=== PATIENT | male | born 1975 | race Hispanic/Latino ===

== ENCOUNTER 2019-10-09 13:34 | Inpatient (IN) | payer BC, OTHER ==
[2019-10-09] MEDS ORDERED: IPRATROPIUM BROM 0.5MG/2.5ML ONE (14:26)
[2019-10-09] MEDS ORDERED: NA CHLORIDE 0.9% 2,000 ML ONE (14:26)
[2019-10-09] MEDS ORDERED: LEVALBUTEROL 1.25 MG/3 ML NEB ONE (14:26)
[2019-10-09] MEDS ORDERED: Levofloxacin 750mg IV 750 MG/150 ML BAG IV ONE (14:26)
[2019-10-09] MEDS ORDERED: ONDANSETRON 4 MG/2 ML VIAL ONE ×2 (14:34→14:59)
[2019-10-09 14:49] LABS: Absolute Lymphocytes (CBC) 0.3 K/uL (0.7-4.9); Basophils % 0.4 % (0-1.3); Hematocrit 46.7 % (39.6-49.0); Lymphocytes % 2.8 % (15.3-44.8); MPV 9.2 fL (7.6-11.3); Protime INR 1.19; RBC Red Blood Cell Count 5.18 M/uL (4.33-5.43)
[2019-10-09] MEDS ORDERED: ACETAMINOPHEN 500 MG TAB ONE (14:59)
[2019-10-09] MEDS ORDERED: OSELTAMIVIR 75 MG CAP ONE (14:59)
[2019-10-09 15:10] LABS: Albumin 2.6 g/dL (3.4-5.0); Bilirubin Direct 0.2 mg/dL (0-0.2); Bilirubin Total 0.6 mg/dL (0.2-1.0); Magnesium 1.7 mg/dL (1.8-2.4); Potassium 3.6 mmol/L (3.5-5.1); Protein, Total 6.9 g/dL (6.4-8.2); Troponin (Emerg Dept Use Only) 0.02 ng/mL (0.0-0.045)
--- NOTE | 2019-10-09 15:10 | RAD REPORT ---
EXAM DESCRIPTION: RAD - Chest Pa And Lat (2 Views) - 10/09/2019 2:40 pm CLINICAL HISTORY: PAIN, cough, fever COMPARISON: Chest Pa And Lat (2 Views) dated 10/23/2017; Chest Pa And Lat (2 Views) dated 10/21/2017 TECHNIQUE: Frontal and lateral views of the chest were obtained. FINDINGS: The lungs are normal volume. Lateral view is limited due to film technique and large body habitus. Alveolar opacities are present in the mid and lower right lung field not present on the prior examina tion. Overall mild interstitial pattern is similar to comparison. Heart size is normal and central vasculature is within normal limits. No pleural effusion or pneumothorax seen. No acute bony findin g noted. No aortic abnormality. IMPRESSION: Mid and lower right lung field pneumonia.
[2019-10-09 15:26] LABS: Blood Morphology Comment NOT SEEN (NOT SEEN); Platelet Estimate ADEQ; Urine White Blood Cell Casts OK
--- NOTE | 2019-10-09 15:26 | EDPHYS ---
Physician Documentation [facility] Name: Reynaldo Stevenson Age: 44 yrs Sex: Male : 1975 Arrival Date: 10/09/2019 Time: 13:39 Bed 6 Private MD: ED Physician Ciro Leavitt HPI: 10/09 14:19 This 44 yrs old Male presents to ER via Ambulatory with complaints of Flu caitlyn Symptoms. 14:19 The patient has shortness of breath at rest, with light activity. Onset: The caitlyn symptoms/episode began/occurred 2 day(s) ago. The patient's shortness of breath has no apparent modifying factors. Modifying factors: The symptoms are alleviated by nothing. the symptoms are aggravated by nothing. Associated signs and symptoms: The patient has no apparent associated signs or symptoms. Severity of symptoms: At their worst the symptoms were moderate in the emergency department the symptoms are unchanged. Historical: - Allergies: 13:45 No Known Allergies; aj1 - PMHx: 13:45 Hypertension; Diabetes - NIDDM; aj1 - PSHx: 13:45 None; aj1 - Immunization history:: Flu vaccine is not up to date. - Coronavirus screen:: The patient has NOT traveled to [place], [place], or [place] in the past 14 days. - Social history:: Smoking status: Patient reports the use of cigarette tobacco products, 1 pack per week. - Ebola Screening: : Patient denies travel to an Ebola-affected area in the 21 days before illness onset. ROS: 14:20 Eyes: Negative for injury, pain, redness, and discharge, ENT: Negative for injury, caitlyn pain, and discharge, Neck: Negative for injury, pain, and swelling, Cardiovascular: Negative for chest pain, palpitations, and edema, Abdomen/GI: Negative for abdominal pain, nausea, vomiting, diarrhea, and constipation, Back: Negative for injury and pain, : Negative for injury, bleeding, discharge, and swelling, MS/Extremity: Negative for injury and deformity, Skin: Negative for injury, rash, and discoloration, Neuro: Negative for headache, weakness, numbness, tingling, and seizure. 14:20 Cardiovascular: Positive for palpitations. 14:20 Respiratory: Positive for cough, shortness of breath, wheezing, expiratory. Exam: 14:20 Head/Face: Normocephalic, atraumatic. Eyes: Pupils equal round and reactive to light, caitlyn extra-ocular motions intact. Lids and lashes normal. Conjunctiva and sclera are non-icteric and not injected. Cornea within normal limits. Periorbital areas with no swelling, redness, or edema. ENT: Nares patent. No nasal discharge, no septal abnormalities noted. Tympanic membranes are normal and external auditory canals are clear. Oropharynx with no redness, swelling, or masses, exudates, or evidence of obstruction, uvula midline. Mucous membranes moist. Neck: Trachea midline, no thyromegaly or masses palpated, and no cervical lymphadenopathy. Supple, full range of motion without nuchal rigidity, or vertebral point tenderness. No Meningismus. Chest/axilla: Normal chest wall appearance and motion. Nontender with no deformity. No lesions are appreciated. Abdomen/GI: Soft, non-tender, with normal bowel sounds. No distension or tympany. No guarding or rebound. No evidence of tenderness throughout. Back: No spinal tenderness. No costovertebral tenderness. Full range of motion. Male : Normal genitalia with no discharge or lesions. Skin: Warm, dry with normal turgor. Normal color with no rashes, no lesions, and no evidence of cellulitis. 14:20 Constitutional: The patient appears febrile. 14:20 Cardiovascular: Rate: tachycardic, Rhythm: regular, Heart sounds: normal. 14:20 Musculoskeletal/extremity: DVT Exam: No signs of deep vein thrombosis. no pain, no swelling, no tenderness, negative Homans' sign noted on exam, no appreciated bluish discoloration, no erythema, no increased warmth. Vital Signs: 13:45 BP 173 / 93; Pulse 117; Resp 20; Temp 99.6; Pulse Ox 96% on R/A; Weight 133.81 kg (R); aj1 Height 5 ft. 5 in. (165.10 cm) (R); 14:48 BP 134 / 88; Pulse 100; Resp 20; Pulse Ox 96% on R/A; em 16:14 BP 138 / 83; Pulse 101; Resp 20; Temp 99.0(O); Pulse Ox 100% on R/A; em 13:45 Body Mass Index 49.09 (133.81 kg, 165.10 cm) [facility] MDM: 13:54 Patient medically screened. [facility] 14:22 Data reviewed: vital signs, nurses notes, lab test result(s), EKG, radiologic studies, caitlyn plain films. 10/09 14:18 Order name: Basic Metabolic Panel; Complete Time: 15:23 [facility] 10/09 14:18 Order name: CBC with Diff; Complete Time: 18:12 [facility] 10/09 14:18 Order name: LFT's; Complete Time: 15:23 [facility] 10/09 14:18 Order name: Magnesium; Complete Time: 15:23 [facility] 10/09 14:18 Order name: NT PRO-BNP; Complete Time: 15:23 [facility] 10/09 14:18 Order name: PT-INR; Complete Time: 15:23 [facility] 10/09 14:18 Order name: Troponin (emerg Dept Use Only); Complete Time: 15:23 [facility] 10/09 14:18 Order name: Chest Pa And Lat (2 Views) XRAY; Complete Time: 15:23 [facility] 10/09 14:19 Order name: Procalcitonin; Complete Time: 18:12 [facility] 10/09 14:19 Order name: Lactate; Complete Time: 15:23 [facility] 10/09 14:19 Order name: Blood Culture Adult (2) [facility] 10/09 15:03 Order name: CBC Smear Scan; Complete Time: 18:12 [facility] 10/09 14:18 Order name: EKG; Complete Time: 14:19 [facility] 10/09 14:18 Order name: Cardiac monitoring; Complete Time: 15:04 [facility] 10/09 14:18 Order name: EKG - Nurse/Tech; Complete Time: 15:04 [facility] 10/09 14:18 Order name: IV Saline Lock; Complete Time: 15:04 [facility] 10/09 14:18 Order name: Labs collected and sent; Complete Time: 15:04 [facility] 10/09 14:18 Order name: O2 Per Protocol; Complete Time: 15:04 [facility] 10/09 16:13 Order name: Diet Heart Healthy; Complete Time: 16:13 10/09 14:18 Order name: O2 Sat Monitoring; Complete Time: 14:25 [facility] 10/09 18:11 Order name: Urine Dipstick-Ancillary (obtain specimen); Complete Time: 18:11 ss Administered Medications: 14:22 CANCELLED (Duplicate Order): Atropine 0.5 mg IVP once [facility] 14:30 Drug: Zofran 4 mg Route: IVP; Site: right antecubital; em 14:50 Follow up: Response: No adverse reaction; Marked relief of symptoms; Nausea is decreasedem 14:50 Drug: NS 0.9% 1000 ml Route: IV; Rate: 1 bolus; Site: right antecubital; em 14:50 Drug: NS 0.9% 1000 ml Route: IV; Rate: 1 bolus; Site: right antecubital; em 14:50 Drug: levofloxacin 750 mg Volume: 150 ml; Route: IVPB; Infused Over: 90 mins; Site: em right antecubital; 14:50 Drug: Xopenex 2.5 mg Route: Inhalation; em 15:10 Follow up: Response: No adverse reaction; Marked relief of symptoms em 14:50 Drug: AtroVENT Aerosol 0.5 mg Route: Inhalation; em 15:10 Follow up: Response: No adverse reaction em 15:04 Not Given (Physician Discretion): Tylenol 1000 mg PO once em 15:31 Drug: Tamiflu 75 mg Route: PO; aa5 15:51 Follow up: Response: No adverse reaction aa5 15:51 Drug: Rocephin 2 grams Route: IV; Rate: per protocol; Site: right antecubital; aa5 16:11 Follow up: Response: No adverse reaction; IV Status: Completed infusion; IV Intake: 20mlem Disposition: 10/09/19 15:26 Hospitalization ordered by Triston Carter for Inpatient Admission. Preliminary diagnosis are Dyspnea, Pneumonia due to other specified bacteria - right mid and lower lobe pna, Fever, unspecified, Type 2 diabetes mellitus, Obesity, unspecified, Hypomagnesemia. - Bed requested for Telemetry/MedSurg (Inpatient). - Status is Inpatient Admission. hb - Condition is Fair. - Problem is new. - Symptoms have improved. UTI on Admission? No Signatures: Dispatcher [employer] Bernie Beltran RN RN ajAnna Marie Urena RN Ciro Avelar MD MD cha Munoz, Edgar, RN RN em Ivone Montgomery RN RN aa5 Sofia Kitchen RN RN ss Baxter, Heather, RN RN hb Corrections: (The following items were deleted from the chart) 14:22 14:18 Atropine 0.5 mg IVP once ordered. caitlyn brady 15:34 15:26 Hospitalization Ordered by John Benson MD for Inpatient Admission. Preliminary [facility] diagnosis is Dyspnea; Pneumonia due to other specified bacteria - right mid and lower lobe pna; Fever, unspecified; Type 2 diabetes mellitus; Obesity, unspecified. Bed requested for Telemetry/MedSurg (Inpatient). Status is Inpatient Admission. Condition is Fair. Problem is new. Symptoms have improved. UTI on Admission? No. caitlyn 17:34 15:34 10/09/2019 15:26 Hospitalization Ordered by Triston Carter for Inpatient dw Admission. Preliminary diagnosis is Dyspnea; Pneumonia due to other specified bacteria - right mid and lower lobe pna; Fever, unspecified; Type 2 diabetes mellitus; Obesity, unspecified. Bed requested for Telemetry/MedSurg (Inpatient). Status is Inpatient Admission. Condition is Fair. Problem is new. Symptoms have improved. UTI on Admission? No. caitlyn 18:13 17:34 10/09/2019 15:26 Hospitalization Ordered by Triston Carter for Inpatient caitlyn Admission. Preliminary diagnosis is Dyspnea; Pneumonia due to other specified bacteria - right mid and lower lobe pna; Fever, unspecified; Type 2 diabetes mellitus; Obesity, unspecified. Bed requested for Telemetry/MedSurg (Inpatient). Status is Inpatient Admission. Condition is Fair. Problem is new. Symptoms have improved. UTI on Admission? No. dw 18:44 18:13 10/09/2019 15:26 Hospitalization Ordered by Triston Carter for Inpatient hb Admission. Preliminary diagnosis is Dyspnea; Pneumonia due to other specified bacteria - right mid and lower lobe pna; Fever, unspecified; Type 2 diabetes mellitus; Obesity, unspecified; Hypomagnesemia. Bed requested for Telemetry/MedSurg (Inpatient). Status is Inpatient Admission. Condition is Fair. Problem is new. Symptoms have improved. UTI on Admission? No. caitlyn
--- NOTE | 2019-10-09 15:26 | ER ---
Nurse's Notes [facility] Name: Reynaldo Stevenson Age: 44 yrs Sex: Male : 1975 Arrival Date: 10/09/2019 Time: 13:39 Bed 6 Private MD: Diagnosis: Dyspnea;Pneumonia due to other specified bacteria-right mid and lower lobe pna;Fever, unspecified;Type 2 diabetes mellitus;Obesity, unspecified;Hypomagnesemia Presentation: 10/09 13:43 Presenting complaint: Patient states: Chills, headache, nausea, diarrhea, ear pain, aj1 sinus pressure, cough and fever since yesterday. He was seen at Urgent Care and advised to come to the emergency room because he has a history of pneumonia. Flu swab was done and was negative. Transition of care: patient was not received from another setting of care. Onset of symptoms was 2019. Risk Assessment: Do you want to hurt yourself or someone else? Patient reports no desire to harm self or others. Initial Sepsis Screen: Does the patient meet any 2 criteria? HR > 90 bpm. No. Patient's initial sepsis screen is negative. Does the patient have a suspected source of infection? Yes: Productive cough/pneumonia. Care prior to arrival: None. 13:43 Method Of Arrival: Ambulatory aj1 13:43 Acuity: RONNIE 3 aj1 Triage Assessment: 13:45 General: Appears in no apparent distress. comfortable, Behavior is calm, cooperative, aj1 appropriate for age. Pain: Pain currently is 9 out of 10 on a pain scale. Neuro: Level of Consciousness is awake, alert, obeys commands. Cardiovascular: Patient's skin is warm and dry. Respiratory: Airway is patent Respiratory effort is even, unlabored, Respiratory pattern is regular, symmetrical. Historical: - Allergies: 13:45 No Known Allergies; aj1 - PMHx: 13:45 Hypertension; Diabetes - NIDDM; aj1 - PSHx: 13:45 None; aj1 - Immunization history:: Flu vaccine is not up to date. - Coronavirus screen:: The patient has NOT traveled to [place], [place], or [place] in the past 14 days. - Social history:: Smoking status: Patient reports the use of cigarette tobacco products, 1 pack per week. - Ebola Screening: : Patient denies travel to an Ebola-affected area in the 21 days before illness onset. Screenin:26 Abuse screen: Denies threats or abuse. Nutritional screening: No deficits noted. em Tuberculosis screening: No symptoms or risk factors identified. Fall Risk None identified. Assessment: 14:25 General: Appears in no apparent distress. comfortable, Behavior is calm, cooperative, em appropriate for age, Reports fever for 12-24 hours, feeling ill for 2-3 days. Pain: Complains of pain in "body aches". Neuro: Level of Consciousness is awake, alert, obeys commands, Oriented to person, place, time, situation, Appropriate for age. Cardiovascular: Capillary refill < 3 seconds Patient's skin is warm and dry. Chest pain is denied. Respiratory: Reports shortness of breath at rest Airway is patent Respiratory effort is even, unlabored, Respiratory pattern is regular, symmetrical, Onset: The symptoms/episode began/occurred Thursday morning. GI: Abdomen is obese, Reports nausea, Patient currently denies vomiting. Derm: Skin is intact, is healthy with good turgor, Skin is pink, warm \\T\\ dry. Musculoskeletal: Capillary refill < 3 seconds, Range of motion: intact in all extremities. 15:51 Reassessment: Patient is alert, oriented x 3, equal unlabored respirations, skin aa5 warm/dry/pink. Pt sitting up in bed. Dr. Leavitt speaking to patient about need for admission, pt verbalizes understanding. . 16:21 Reassessment: Patient appears in no apparent distress at this time. Ordered pt a dinner em tray Patient states feeling better. Patient states symptoms have improved. Vital Signs: 13:45 BP 173 / 93; Pulse 117; Resp 20; Temp 99.6; Pulse Ox 96% on R/A; Weight 133.81 kg (R); aj1 Height 5 ft. 5 in. (165.10 cm) (R); 14:48 BP 134 / 88; Pulse 100; Resp 20; Pulse Ox 96% on R/A; em 16:14 BP 138 / 83; Pulse 101; Resp 20; Temp 99.0(O); Pulse Ox 100% on R/A; em 13:45 Body Mass Index 49.09 (133.81 kg, 165.10 cm) aj1 ED Course: 13:39 Patient arrived in ED. mr 13:45 Triage completed. aj1 13:45 Arm band placed on Patient placed in waiting room, Patient notified of wait time. aj1 13:54 Ciro Leavitt MD is Attending Physician. caitlyn 14:17 Familia Tejada, ADALBERTO is Primary Nurse. em 14:26 Patient has correct armband on for positive identification. Placed in gown. Bed in low em position. Call light in reach. Side rails up X2. 14:41 Chest Pa And Lat (2 Views) XRAY In Process Unspecified. EDMS 15:24 John Benson MD is Hospitalizing Provider. caitlyn 15:34 Triston Carter is Hospitalizing Provider. caitlyn Administered Medications: 14:22 CANCELLED (Duplicate Order): Atropine 0.5 mg IVP once caitlyn 14:30 Drug: Zofran 4 mg Route: IVP; Site: right antecubital; em 14:50 Follow up: Response: No adverse reaction; Marked relief of symptoms; Nausea is decreasedem 14:50 Drug: NS 0.9% 1000 ml Route: IV; Rate: 1 bolus; Site: right antecubital; em 14:50 Drug: NS 0.9% 1000 ml Route: IV; Rate: 1 bolus; Site: right antecubital; em 14:50 Drug: levofloxacin 750 mg Volume: 150 ml; Route: IVPB; Infused Over: 90 mins; Site: em right antecubital; 14:50 Drug: Xopenex 2.5 mg Route: Inhalation; em 15:10 Follow up: Response: No adverse reaction; Marked relief of symptoms em 14:50 Drug: AtroVENT Aerosol 0.5 mg Route: Inhalation; em 15:10 Follow up: Response: No adverse reaction em 15:04 Not Given (Physician Discretion): Tylenol 1000 mg PO once em 15:31 Drug: Tamiflu 75 mg Route: PO; aa5 15:51 Follow up: Response: No adverse reaction aa5 15:51 Drug: Rocephin 2 grams Route: IV; Rate: per protocol; Site: right antecubital; aa5 16:11 Follow up: Response: No adverse reaction; IV Status: Completed infusion; IV Intake: 20mlem Intake: 16:11 IV: 20ml; Total: 20ml. em Outcome: 15:26 Decision to Hospitalize by Provider. caitlyn 18:44 Patient left the ED. hb Signatures: Dispatcher [employer] EDBernie Welsh RN RN aj1 Ciro Leavitt MD MD cha Rivera Ninoska mr Familia Tejada, ADALBERTO RN em Ivone Montgomery RN RN aa5 Dejah Lamar RN RN Corrections: (The following items were deleted from the chart) 15:01 14:30 Zofran 4 mg IVP in left antecubital em em
[2019-10-09] MEDS ORDERED: CEFTRIAXONE/SWI 1gm 2 GM/20 ML SYR ONE (15:50)
--- NOTE | 2019-10-09 17:00 | P.HP ---
Certification for Inpatient Patient admitted to: Inpatient With expected LOS: >2 Midnights Practitioner: I am a practitioner with admitting privileges, knowledge of patient current condition, hospital course, and medical plan of care. Services: Services provided to patient in accordance with Admission requirements found in Title 42 Section 412.3 of the Code of Federal Regulations Patient History Date of Service: 10/09/19 Reason for admission: Cough and fever History of Present Illness: 44-year-old morbidly obese gentleman with a history of obstructive sleep apnea, DM type 2 presented to the emergency department with a complaint of cough, fever and shortness of breath or for about 2 days duration. Symptoms also associated with diarrhea, nausea and vomiting. He went to an urgent care where he tested negative for flu. Patient was referred to the ED because of his previous history of pneumonia. His temperature in the ED was 99.6. Chest x- ray demonstrates findings suggestive of right lower lobe pneumonia. He has no leukocytosis, and does not meet criteria for sepsis. Patient was not hypoxic on room air. He is admitted for further management of pneumonia. Allergies No Known Allergies Allergy (Verified 10/21/17 16:46) Home Medications: Glimepiride 2 mg PO BID 10/21/17 Hydralazine HCl [Apresoline] 50 mg PO BID 10/21/17 Metformin HCl 1,000 mg PO BID 10/21/17 Sitagliptin Phosphate [Januvia*] 100 mg PO DAILY 10/21/17 dilTIAZem HCl [Diltiazem 24Hr ER (Cd)] 360 mg PO DAILY 10/21/17 - Past Medical/Surgical History Diabetic: Yes -: DM-Type 2 -: HTN -: Sleep Apnea -: Appendectomy - Family History Mother -: Diabetes, Cancer Notes: Ovarian - Social History Alcohol use: Yes CD- Drugs: No Caffeine use: Yes Review of Systems Other: Eyes: No eye discharge, CVS: No chest pain, no palpitation, no lightheadedness. GI: No abdominal pain, no nausea no vomit, no constipation, no diarrhea. Genitourinary: No dysuria, no urinary frequency, no incontinence, no hematuria. Musculoskeletal: No joint pains, or joint swelling, no gait instability. Neurology: No headache, no asymmetric weakness, no problem with swallowing. Except as documented, all other systems reviewed and negative. Physical Examination - Physical Exam General: Alert, In no apparent distress, Oriented x3, Obese HEENT: Normocephalic, Mucous membr. moist/pink, Sclerae nonicteric Neck: Supple, JVD not distended Respiratory: Clear to auscultation bilaterally, Diminished Cardiovascular: No edema, Regular rate/rhythm, Normal S1 S2 Capillary refill: <2 Seconds Gastrointestinal: Normal bowel sounds, Soft and benign, No tenderness Musculoskeletal: No swelling, No erythema Integumentary: No rashes, No erythema Neurological: Normal speech, Normal strength at 5/5 x4 extr - Studies Laboratory Data (last 24 hrs) 10/09/19 14:33: PT 13.9 H, INR 1.19 10/09/19 14:33: WBC 9.6, Hgb 15.7, Hct 46.7, Plt Count 186 10/09/19 14:33: Sodium 138, Potassium 3.6, BUN 7, Creatinine 1.19, Glucose 78, Magnesium 1.7 L, Total Bilirubin 0.6, AST 23, ALT 25, Alkaline Phosphatase 70 Assessment and Plan - Problems (Diagnosis) (1) Pneumonia Current Visit: Yes Status: Acute (2) DM type 2 (diabetes mellitus, type 2) Current Visit: Yes Status: Acute (3) Obstructive sleep apnea Current Visit: Yes Status: Acute (4) Essential hypertension Current Visit: Yes Status: Acute - Plan Place under observation Treat community-acquired pneumonia with IV Rocephin and Zithromax. Bronchodilators Patient wants us to continue his home diabetic medications and antihypertensives without any changes. He is declining insulin therapy. Daily fingerstick glucose checks. Slow IV hydration. Follow blood cultures. - Advance Directives Does patient have a Living Will: No Does patient have a Durable POA for Healthcare: No
[2019-10-09] MEDS ORDERED: ACETAMINOPHEN 500 MG TAB PO PRN (19:04)
[2019-10-09] MEDS ORDERED: ONDANSETRON 4 MG/2 ML VIAL IV PRN (19:04)
[2019-10-09 19:36] VITALS: BMI 48.6
[2019-10-09] MEDS: IPRATROPIUM BROM 0.5MG/2.5ML NEB SCH (19:50)
[2019-10-09] MEDS: ALBUTEROL 2.5 MG/3 ML NEB SOL NEB SCH (19:50)
[2019-10-09] MEDS ORDERED: MAGNESIUM SULFATE 1 gm IVPB 1 GM/100 ML BAG IV ONE (20:30)
[2019-10-09 20:36] LABS: Urine Appearance CLEAR; Urine Bilirubin NEGATIVE (NEG); Urine Blood TRACE (NEG); Urine Color YELLOW; Urine Glucose NEGATIVE (NEG); Urine Protein 3+ (NEG); Urine Urobilinogen 0.2 mg/dL (0.2-1.0); Urine pH 6.5 (5.0-7.0)
[2019-10-09 20:39] LABS: Urine Microscopic Reflex ORDER UMIC
[2019-10-09 20:51] LABS: Urine Bacteria 20-50 /HPF (NONE SEEN); Urine Culture Reflex Order REFLEXED; Urine RBC <5 /HPF (NONE SEEN)
[2019-10-09] MEDS: NA CHLORIDE 0.9% 1,000 ML IV SCH (20:58)
[2019-10-09] MEDS: GUAIFENESIN/DM 5 ML UCUP PO PRN (20:58)
[2019-10-10] MEDS: IPRATROPIUM BROM 0.5MG/2.5ML NEB SCH ×4 (01:40→22:21)
[2019-10-10] MEDS: ALBUTEROL 2.5 MG/3 ML NEB SOL NEB SCH ×4 (02:00→22:21)
--- NOTE | 2019-10-10 05:26 | EKG ---
Test Date: 2019-10-09 Test Time: 14:52:00 Rn Cardiovascular: MARIA DE JESUS MEASUREMENT RESULTS: Intervals: Rate: 95 VA: 152 QRSD: 106 QT: 352 QTc: 442 [place]: P: 13 VA: 152 QRS: 21 T: 75 INTERPRETIVE STATEMENTS: Normal sinus rhythm Nonspecific T wave abnormality Abnormal ECG No previous ECG available for comparison Electronically Signed On 10-10-19 05:25:50 PHOTOGRAPHIC PROCESS WORKER by Bejnie Brownlee
[2019-10-10 05:36] LABS: Absolute Lymphocytes (CBC) 0.7 K/uL (0.7-4.9); Basophils % 0.3 % (0-1.3); Hematocrit 44.4 % (39.6-49.0); Lymphocytes % 8.2 % (15.3-44.8); MPV 9.2 fL (7.6-11.3); RBC Red Blood Cell Count 4.88 M/uL (4.33-5.43)
[2019-10-10] MEDS ORDERED: INFLUENZA VACCINE (for 3y+) 0.5 ML DOSE IMVAC ONE (06:00)
[2019-10-10 06:15] LABS: Magnesium 2.1 mg/dL (1.8-2.4); Phosphorus 4.1 mg/dL (2.5-4.9); Potassium 3.9 mmol/L (3.5-5.1)
[2019-10-10] MEDS ORDERED: GLIMEPIRIDE 2 MG TABLET PO SCH ×2 (08:00→17:00)
[2019-10-10] MEDS ORDERED: GLUCAGON 1 MG/VIAL IM PRN (08:03)
[2019-10-10] MEDS ORDERED: AZITHROMYCIN IV 500 MG in NA CHLORIDE 0.9% 250 ML IVPB SCH (09:00)
[2019-10-10] MEDS: SITAGLIPTIN PHOS 100 MG TAB PO SCH ×2 (09:00→09:51)
[2019-10-10] MEDS ORDERED: POTASSIUM CL SA 10 MEQ TAB PO ONE (09:00)
[2019-10-10] MEDS ORDERED: CEFTRIAXONE 1 GM/NS 50 ML 1 GM/50 ML BAG IV SCH (09:00)
[2019-10-10] MEDS: HYDRALAZINE HCL 25 MG TABLET PO SCH ×2 (09:15→21:38)
[2019-10-10] MEDS: METFORMIN HCL 500 MG TAB PO SCH ×2 (09:15→16:56)
[2019-10-10] MEDS: CEFTRIAXONE/SWI 1gm 1 GM/10 ML SYR IV SCH (09:15)
[2019-10-10] MEDS: ENOXAPARIN 40 MG/0.4 ML SQ SCH (09:15)
[2019-10-10] MEDS: DILTIAZEM HCL 180 MG SR CAP PO SCH (09:51)
[2019-10-10] MEDS: D50W 25 GM/50 ML SYRINGE/VIAL IV PRN ×3 (10:46→19:01)
[2019-10-10] MEDS: INSULIN -REGULAR HUMAN 50 UNIT/0.5 ML ML SQ SCH ×3 (11:30→21:00)
[2019-10-10] MEDS: NA CHLORIDE 0.9% 1,000 ML IV SCH (15:04)
[2019-10-10] MEDS ORDERED: D5 0.9 NS 1,000 ML IV ONE (16:45)
[2019-10-10] MEDS ORDERED: D5 0.9 NS 1,000 ML IV SCH ×2 (17:00→20:00)
[2019-10-10] MEDS: GUAIFENESIN/DM 5 ML UCUP PO PRN (21:40)
--- NOTE | 2019-10-10 22:51 | PN ---
Patient is afebrile. He still has wheezing and coughing. He has been having hypoglycemia very likel y due to poor eating secondary to his infectious status. Patient will have repeat chest x-ray to see whether he will be able to go home on oral antibiotics. In view of his elevated BNP, he is going to have echocardiogram today. IRINA/MANNY Voice ID: [id number] Report ID: [id number]
[2019-10-11] MEDS: IPRATROPIUM BROM 0.5MG/2.5ML NEB SCH ×2 (02:25→07:48)
[2019-10-11] MEDS: ALBUTEROL 2.5 MG/3 ML NEB SOL NEB SCH ×2 (02:25→07:48)
[2019-10-11 06:55] LABS: Potassium 3.7 mmol/L (3.5-5.1)
--- NOTE | 2019-10-11 06:55 | RAD REPORT ---
EXAM DESCRIPTION: RAD - Chest Pa And Lat (2 Views) - 10/11/2019 6:27 am CLINICAL HISTORY: for monitoring Chest pain. COMPARISON: Chest Pa And Lat (2 Views) dated 10/09/2019; Chest Pa And Lat (2 Views) dated 10/23/2017; C hest Pa And Lat (2 Views) dated 10/21/2017 FINDINGS: Mild right upper lobe and right midlung infiltrate/pneumonia pattern appears mildly progre ssive. The heart is upper limit normal in size. No displaced fractures. IMPRESSION: Slight worsening in right lung aeration infiltrate pattern since comparative study.
[2019-10-11] MEDS: INSULIN -REGULAR HUMAN 50 UNIT/0.5 ML ML SQ SCH ×2 (07:30→11:30)
--- NOTE | 2019-10-11 07:33 | ECHO ---
HEIGHT: 5 ft 5 in WEIGHT: 292 lb 4.8 oz DATE OF STUDY: 10/10/[address]: John Benson MD 2-DIMENSIONAL: YES M.MODE: YES DOPPLER: YES COLOR FLOW: YES TDS: YES PORTABLE: DEFINITY: BUBBLE STUDY: DIAGNOSIS: CONGESTIVE HEART FAILURE CARDIAC HISTORY: CATHERIZATION: NO SURGERY: NO PROSTHETIC VALVE: NO PACEMAKER: NO MEASUREMENTS (cm) DIASTOLIC (NORMALS) SYSTOLIC (NORMALS) IVSd 1.1 (0.6-1.2) LA Diam 3.2 (1.9-4.0) LVEF 60-69% LVIDd 5.1 (3.5-5.7) LVIDs 3.8 (2.0-3.5) %FS 25% LVPWd 1.1 (0.6-1.2) Ao Diam (2.0-3.7) 2 DIMENSIONAL ASSESSMENT: RIGHT ATRIUM: NORMAL LEFT ATRIUM: NORMAL RIGHT VENTRICLE: NORMAL LEFT VENTRICLE: NORMAL TRICUSPID VALVE: NORMAL MITRAL VALVE: NORMAL PULMONIC VALVE: NORMAL AORTIC VALVE: NORMAL PERICARDIAL EFFUSION: NONE AORTIC ROOT: NORMAL LEFT VENTRICULAR WALL MOTION: NORMAL DOPPLER/COLOR FLOW: MILD AORTIC REGURGITATION COMMENTS: NORMAL 2-DIMENSIONAL ECHOCARDIOGRAM. MILD AORTIC REGURGITATION. TECHNOLOGIST: EVONNE RIVERA/ SUDHIR PANG
[2019-10-11] MEDS: METFORMIN HCL 500 MG TAB PO SCH (08:22)
[2019-10-11] MEDS: ENOXAPARIN 40 MG/0.4 ML SQ SCH (08:22)
[2019-10-11] MEDS: CEFTRIAXONE/SWI 1gm 1 GM/10 ML SYR IV SCH (08:22)
[2019-10-11] MEDS: DILTIAZEM HCL 180 MG SR CAP PO SCH (08:23)
[2019-10-11] MEDS: HYDRALAZINE HCL 25 MG TABLET PO SCH (08:23)
[2019-10-11] MEDS ORDERED: AZITHROMYCIN 250 MG TAB PO SCH (09:00)
[2019-10-11] MEDS ORDERED: POTASSIUM CL SA 10 MEQ TAB PO ONE (09:00)
--- NOTE | 2019-10-11 12:15 | P.CNS ---
Date of Consult: 10/11/19 Reason for Consult: Possible pneumonia Chief Complaint: Cough and fever History of Present Illness: Patient is 44 years of age a got sick on Thursday Hilaria bodyaches cough congestion productive phlegm evaluated in the urgent care relatives tested positive for him flu 0 ended up here in the hospital is feeling a lot better now bodyaches have resolved denies any fever or chills he did have some fever coughing up some pinkish sputum chest x-ray little abnormal or possibly infiltrate in the upper lobe patient is an active smoker Allergies lisinopril Adverse Reaction (Severe, Verified 10/10/19 20:26) Shortness of breath Home Medications: Glimepiride 2 mg PO BREAKFAST 10/21/17 Hydralazine HCl [Apresoline] 50 mg PO BID 10/21/17 Metformin HCl 1,000 mg PO BID 10/21/17 Sitagliptin Phosphate [Januvia*] 100 mg PO DAILY 10/21/17 dilTIAZem HCl [Diltiazem 24Hr ER (Cd)] 360 mg PO DAILY 10/21/17 Glimepiride [Amaryl*] 4 mg PO DAILY AT SUPPER 10/09/19 - Past Medical/Surgical History Diabetic: Yes -: DM-Type 2 -: HTN -: Sleep Apnea -: Appendectomy - Family History Mother Medical History: Diabetes, Cancer Notes: Ovarian - Social History Alcohol use: Yes CD- Drugs: No Caffeine use: Yes Place of Residence: Home Review of Systems General: Weakness Respiratory: Cough, Shortness of Breath Physical Examination Temp Pulse Resp BP Pulse Ox 98.1 F 97 H 20 146/83 H 95 10/11/19 08:00 10/11/19 08:23 10/11/19 08:00 10/11/19 08:23 10/11/19 08:00 General: Alert HEENT: Atraumatic Neck: Supple Respiratory: Clear to auscultation bilaterally Cardiovascular: No edema, Regular rate/rhythm Gastrointestinal: Normal bowel sounds, Soft and benign Musculoskeletal: No clubbing, No swelling - Problems (1) Influenza Current Visit: Yes Status: Acute Plan: Patient is 44 years of age admitted region lab constitutional symptoms of fever bodyaches malaise shortness of breath and cough consistent with a viral infection and atypical pneumonia CA as labs unremarkable pro calcitonin level is negative borderline temperature saturation satisfactory is cultures and negative patient can be discharged home on doxycycline now Zithromax in addition to some Tamiflu have a follow-up x-ray in 2 weeks for advise any PE gets any worse to contact my office
[2019-10-11 12:19] VITALS: BP 150/90; TEMP 97.8
[2019-10-11 12:31] VITALS: O2SAT 94
== END 2019-10-11 14:24 | disposition home or self-care (01) | DRG 194 ==
LOC: ER 13:34 → ERHOLD 17:03 → 2ND 18:34 → OBSVTOIN 10-10 16:07
PROVIDERS: ADMIT Internal Medicine; ATTEND Internal Medicine
DX: J11.00 Influenza due to unidentified influenza virus with unspecified type of pneumonia (principal); Z68.42 Body mass index [BMI] 45.0-49.9, adult; I10 Essential (primary) hypertension; E11.649 Type 2 diabetes mellitus with hypoglycemia without coma; G47.33 Obstructive sleep apnea (adult) (pediatric); E66.9 Obesity, unspecified
CPT/HCPCS: 36415; 71046; 80048; 80076; 81003; 81015; 82947; 83605; 83735; 83880; 84100; 84145; 84484; 85025; 85610; 87040; 87070; 87086; 87088; 87205; 93005; 93306; 94640; 94760; 96365; 96375; 99284; G0378; J0456; J0696; J1650; J2405; J3475; J7030; J7042

== ENCOUNTER 2020-06-01 01:38 | Inpatient (IN) | payer OTHER ==
[2020-06-01] MEDS ORDERED: NA CHLORIDE 0.9% 1,000 ML ONE (02:15)
[2020-06-01 02:53] LABS: Absolute Lymphocytes (CBC) 1.6 K/uL (0.7-4.9); Basophils % 0.7 % (0-1.3); Hematocrit 47.3 % (39.6-49.0); Lymphocytes % 19.3 % (15.3-44.8); MPV 9.3 fL (7.6-11.3); RBC Red Blood Cell Count 5.18 M/uL (4.33-5.43)
[2020-06-01 03:11] LABS: ALT/SGPT 17 U/L (12-78); AST/SGOT 16 U/L (15-37); Albumin 2.3 g/dL (3.4-5.0); Alkaline Phosphatase 77 U/L (45-117); BUN Blood Urea Nitrogen 8 mg/dL (7-18); Bicarbonate 24 mmol/L (21-32); Bilirubin Direct < 0.1 mg/dL (0-0.2); Bilirubin Total 0.4 mg/dL (0.2-1.0); Glucose Level 206 mg/dL (74-106); Magnesium 1.9 mg/dL (1.8-2.4); NT PRO-BNP 3940 pg/mL (<125); Potassium 3.3 mmol/L (3.5-5.1); Protein, Total 6.6 g/dL (6.4-8.2); Sodium Level 142 mmol/L (136-145); Troponin (Emerg Dept Use Only) 0.04 ng/mL (0.0-0.045)
[2020-06-01] MEDS ORDERED: FUROSEMIDE 20 MG/ 2ML VIAL ONE ×2 (03:23→04:04)
--- NOTE | 2020-06-01 03:38 | ER ---
Nurse's Notes [facility] Name: Reynaldo Stevenson Age: 45 yrs Sex: Male : 1975 Arrival Date: 06/01/2020 Time: 01:40 Bed 4 Private MD: Diagnosis: Cardiomegaly;Essential (primary) hypertension;Type 2 diabetes mellitus;Obesity, unspecified;Systolic (congestive) heart failure;Dyspnea-atypical pneumonia;Hypokalemia;Pleural effusion in conditions classified elsewhere Presentation: 06/01 01:55 Chief complaint: Patient states: I have bad cough, shortness of breath, congestion got rr5 worst tonight around 0100H. it all started last Thursday with the same symptoms and runny nose, dr. thomas prescribed yesterday antibiotic (Azithromycin). Coronavirus screen: Client denies travel out of the [place] in the last 14 days. congestion, cough unrelated to allergies, diarrhea, difficulty breathing, shortness of breath, The client denies any previous COVID testing. Ebola Screen: Patient negative for fever greater than or equal to 101.5 degrees Fahrenheit, and additional compatible Ebola Virus Disease symptoms Patient denies exposure to infectious person. Patient denies travel to an Ebola-affected area in the 21 days before illness onset. Initial Sepsis Screen: Does the patient meet any 2 criteria? No. Patient's initial sepsis screen is negative. Does the patient have a suspected source of infection? Yes: Productive cough/pneumonia. Risk Assessment: Do you want to hurt yourself or someone else? Patient reports no desire to harm self or others. Onset of symptoms was May 27, 2020. Care prior to arrival: Medication(s) given: azithromycin. 01:55 Method Of Arrival: Ambulatory rr5 01:55 Acuity: RONNIE 3 rr5 Triage Assessment: 02:00 General: Appears in no apparent distress. comfortable, Behavior is calm, cooperative, rr5 appropriate for age. Respiratory: Onset: The symptoms/episode began/occurred suddenly, the patient reports symptoms have resolved. Historical: - Allergies: 02:00 No Known Allergies; rr5 - Home Meds: 02:00 B12 1000mcg 1 tab daily [Active]; CoQ-10 100 mg Oral cap daily [Active]; diltiazem HCl rr5 360 mg Oral cp24 1 cap once daily [Active]; hydralazine 50 mg Oral tab 1 tab 2 times per day [Active]; glimepiride 4 mg Oral tab 1 tab BID [Active]; Januvia 100 mg Oral tab 1 tab once daily [Active]; metformin 1,000 mg Oral tab 1 tab 2 times per day [Active]; - PMHx: 02:00 Diabetes - NIDDM; Hypertension; rr5 - PSHx: 02:00 Appendectomy; rr5 - Immunization history:: Adult Immunizations unknown. - Social history:: Smoking status: Patient reports the use of cigarette tobacco products, 4 sticks/day, Patient uses alcohol, on a daily basis. Patient/guardian denies using street drugs. Screenin:58 Abuse screen: Denies threats or abuse. Denies injuries from another. Nutritional rr5 screening: No deficits noted. Tuberculosis screening: No symptoms or risk factors identified. Fall Risk IV access (20 points). Total El Fall Scale indicates No Risk (0-24 pts). Assessment: 02:00 General: Appears in no apparent distress. comfortable, Behavior is calm, cooperative, rr5 appropriate for age. Pain: Denies pain. Neuro: Level of Consciousness is awake, alert, obeys commands, Oriented to person, place, time, situation. Cardiovascular: Capillary refill < 3 seconds Patient's skin is warm and dry. Rhythm is regular. Respiratory: Reports shortness of breath cough that is Airway is patent Respiratory effort is even, unlabored, Respiratory pattern is regular, symmetrical, GI: No signs and/or symptoms were reported involving the gastrointestinal system. : No signs and/or symptoms were reported regarding the genitourinary system. EENT: No signs and/or symptoms were reported regarding the EENT system. Derm: Skin is intact, is healthy with good turgor, Skin temperature is warm. Musculoskeletal: Circulation, motion, and sensation intact. Capillary refill < 3 seconds. 03:00 Reassessment: Patient appears in no apparent distress at this time. Patient is alert, rr5 oriented x 3, equal unlabored respirations, skin warm/dry/pink. awaiting for result. 04:05 Reassessment: Patient appears in no apparent distress at this time. came back from CT rr5 scan. hospitalist at bedside examining the patient,advised for admission and discussed the plan of care. 04:45 Reassessment: Patient appears in no apparent distress at this time. Patient is alert, rr5 oriented x 3, equal unlabored respirations, skin warm/dry/pink. hospitalist came back explained to patient negative for pulmonary embolism, family updated by the patient. 05:10 Reassessment: Patient appears in no apparent distress at this time. awaiting for covid rr5 result. 06:30 Reassessment: Patient appears in no apparent distress at this time. Patient is alert, rr5 oriented x 3, equal unlabored respirations, skin warm/dry/pink. for transfer to room 223. Vital Signs: 01:55 BP 193 / 121; Pulse 99; Resp 19; Temp 98; Pulse Ox 99% ; Weight 135.17 kg; Height 5 ft. rr5 5 in. (165.10 cm); Pain 0/10; 03:00 BP 189 / 105; Pulse 95; Resp 18; Pulse Ox 98% ; rr5 04:00 BP 186 / 110; Pulse 107; Resp 20; Pulse Ox 99% ; rr5 05:00 BP 178 / 105; Pulse 110; Resp 22; Pulse Ox 98% ; rr5 06:00 BP 162 / 100; Pulse 111; Resp 18; Pulse Ox 97% ; rr5 06:41 BP 166 / 99; Pulse 102; Resp 20; Pulse Ox 97% ; rr5 01:55 Body Mass Index 49.59 (135.17 kg, 165.10 cm) rr5 ED Course: 01:40 Patient arrived in ED. ag3 01:40 Ciro Leavitt MD is Attending Physician. caitlyn 01:55 Magdaleno Chorpa, RN is Primary Nurse. rr5 01:59 Triage completed. rr5 02:01 Arm band placed on right wrist. rr5 02:05 Patient has correct armband on for positive identification. Placed in gown. Bed in low rr5 position. Call light in reach. Side rails up X2. flattening machine operator on. Pulse ox on. NIBP on. 02:25 XRAY Chest (1 view) In Process Unspecified. EDMS 02:35 Inserted saline lock: 20 gauge in left forearm, using aseptic technique. Blood rr5 collected. 02:35 First set of blood cultures drawn by me. rr5 02:40 Second set of blood cultures drawn by me. rr5 02:58 EKG done, by ED staff, reviewed by Magdaleno Chopra RN. rr5 03:05 Notified ED physician of a critical lab result(s). D Dimer 1060. fc 03:36 Triston Carter is Hospitalizing Provider. caitlyn 04:06 CT Chest For PE Angio In Process Unspecified. EDMS 04:07 No provider procedures requiring assistance completed. Patient admitted, IV remains in rr5 place. intact, No redness/swelling at site. Administered Medications: Discontinued: NS 0.9% 1000 ml IV at 75 ml/hr continuous 02:56 Drug: NS 0.9% 1000 ml Route: IV; Rate: 75 ml/hr; Site: left forearm; rr5 03:16 Follow up: Response: No adverse reaction; IV Status: Order to discontinue infusion rr5 03:15 Drug: Lasix 20 mg Route: IVP; Site: left forearm; rr5 04:15 Follow up: Response: No adverse reaction rr5 03:34 CANCELLED (Duplicate Order): hydrALAZINE 5 mg IV at per protocol once caitlyn 03:34 CANCELLED (Duplicate Order): hydrALAZINE 5 mg IV at per protocol once caitlyn 04:15 Drug: Aspirin Chewable Tablet 324 mg Route: PO; rr5 05:10 Follow up: Response: No adverse reaction rr5 04:17 Drug: Potassium Effervescent Tablet 50 mEq Route: PO; rr5 05:10 Follow up: Response: No adverse reaction rr5 04:20 Drug: Pepcid 20 mg Route: IVP; Site: left forearm; rr5 05:20 Follow up: Response: No adverse reaction rr5 04:28 Drug: Tylenol 1000 mg Route: PO; rr5 05:20 Follow up: Response: No adverse reaction rr5 04:28 Drug: hydrALAZINE 10 mg Route: PO; rr5 05:20 Follow up: Response: No adverse reaction; Blood pressure is lowered rr5 04:30 Drug: Rocephin 1 grams Route: IV; Rate: per protocol; Site: left forearm; rr5 05:30 Follow up: Response: No adverse reaction; IV Status: Completed infusion; IV Intake: [id number] 04:35 Drug: Lasix 20 mg Route: IVP; Site: left forearm; rr5 06:37 Follow up: Response: No adverse reaction rr5 04:38 Drug: Lovenox 1 mg/kg Route: Sub-Q; Site: left lower abdomen; rr5 05:30 Follow up: Response: No adverse reaction rr5 04:40 Drug: Nitro-Bid Ointment 2 % 1 inches Route: Transdermal; Site: anterior chest wall; rr5 05:40 Follow up: Response: No adverse reaction rr5 04:40 Drug: Decadron - Dexamethasone 6 mg Route: IVP; Site: left forearm; rr5 05:30 Follow up: Response: No adverse reaction rr5 04:42 Dru mg of (Zithromax 500 mg, NS 0.9% 250 ml) Route: IVPB; Infused Over: 1 hrs; rr5 Site: left forearm; 05:40 Follow up: Response: No adverse reaction; IV Status: Completed infusion; IV Intake: rr5 250ml Intake: 05:30 IV: 10ml; Total: 10ml. rr5 05:40 IV: 250ml; Total: 260ml. rr5 Outcome: 03:37 Decision to Hospitalize by Provider. [facility] 06:41 Admitted to Med/surg via wheelchair, room 223, with chart, Report called to darwin GLOVER rr5 06:41 Condition: stable 06:41 Instructed on the need for admit. 07:34 Patient left the ED. ph Signatures: Dispatcher [employer] EDCiro March MD MD cha Chretien, Felicia, RN Kat Nowak RN RN ph Gomez, Alice ag3 Roque, Raymond RN RN rr5
--- NOTE | 2020-06-01 03:38 | EDPHYS ---
Physician Documentation [facility] Name: Reynaldo Stevenson Age: 45 yrs Sex: Male : 1975 Arrival Date: 06/01/2020 Time: 01:40 Bed 4 Private MD: ED Physician Ciro Leavitt HPI: 06/01 02:01 This 45 yrs old Male presents to ER via Ambulatory with complaints of caitlyn Breathing Difficulty, Cough. 02:01 The patient has shortness of breath at rest, with light activity. Onset: The caitlyn symptoms/episode began/occurred 2 day(s) ago. Duration: The symptoms are continuous, and are steadily getting worse. The patient's shortness of breath has no apparent modifying factors. Associated signs and symptoms: The patient has no apparent associated signs or symptoms. Severity of symptoms: At their worst the symptoms were moderate in the emergency department the symptoms are worse. The patient has not experienced similar symptoms in the past. Historical: - Allergies: 02:00 No Known Allergies; rr5 - Home Meds: 02:00 B12 1000mcg 1 tab daily [Active]; CoQ-10 100 mg Oral cap daily [Active]; diltiazem HCl rr5 360 mg Oral cp24 1 cap once daily [Active]; hydralazine 50 mg Oral tab 1 tab 2 times per day [Active]; glimepiride 4 mg Oral tab 1 tab BID [Active]; Januvia 100 mg Oral tab 1 tab once daily [Active]; metformin 1,000 mg Oral tab 1 tab 2 times per day [Active]; - PMHx: 02:00 Diabetes - NIDDM; Hypertension; rr5 - PSHx: 02:00 Appendectomy; rr5 - Immunization history:: Adult Immunizations unknown. - Social history:: Smoking status: Patient reports the use of cigarette tobacco products, 4 sticks/day, Patient uses alcohol, on a daily basis. Patient/guardian denies using street drugs. ROS: 02:02 Constitutional: Negative for fever, chills, and weight loss, Eyes: Negative for injury, caitlyn pain, redness, and discharge, ENT: Negative for injury, pain, and discharge, Neck: Negative for injury, pain, and swelling, Cardiovascular: Negative for chest pain, palpitations, and edema, Abdomen/GI: Negative for abdominal pain, nausea, vomiting, diarrhea, and constipation, Back: Negative for injury and pain, : Negative for injury, bleeding, discharge, and swelling, Skin: Negative for injury, rash, and discoloration, Neuro: Negative for headache, weakness, numbness, tingling, and seizure, Psych: Negative for depression, anxiety, suicide ideation, homicidal ideation, and hallucinations, Allergy/Immunology: Negative for hives, rash, and allergies, Endocrine: Negative for neck swelling, polydipsia, polyuria, polyphagia, and marked weight changes, Hematologic/Lymphatic: Negative for swollen nodes, abnormal bleeding, and unusual bruising. 02:02 Respiratory: Positive for cough, shortness of breath, wheezing, inspiratory, expiratory. 02:02 MS/extremity: Positive for swelling, of the right leg and left leg. Exam: 02:02 Constitutional: This is a well developed, well nourished patient who is awake, alert, caitlyn and in no acute distress. Head/Face: Normocephalic, atraumatic. Eyes: Pupils equal round and reactive to light, extra-ocular motions intact. Lids and lashes normal. Conjunctiva and sclera are non-icteric and not injected. Cornea within normal limits. Periorbital areas with no swelling, redness, or edema. ENT: Nares patent. No nasal discharge, no septal abnormalities noted. Tympanic membranes are normal and external auditory canals are clear. Oropharynx with no redness, swelling, or masses, exudates, or evidence of obstruction, uvula midline. Mucous membranes moist. Neck: Trachea midline, no thyromegaly or masses palpated, and no cervical lymphadenopathy. Supple, full range of motion without nuchal rigidity, or vertebral point tenderness. No Meningismus. Chest/axilla: Normal chest wall appearance and motion. Nontender with no deformity. No lesions are appreciated. Cardiovascular: Regular rate and rhythm with a normal S1 and S2. No gallops, murmurs, or rubs. Normal PMI, no JVD. No pulse deficits. Abdomen/GI: Soft, non-tender, with normal bowel sounds. No distension or tympany. No guarding or rebound. No evidence of tenderness throughout. Back: No spinal tenderness. No costovertebral tenderness. Full range of motion. Male : Normal genitalia with no discharge or lesions. Skin: Warm, dry with normal turgor. Normal color with no rashes, no lesions, and no evidence of cellulitis. Neuro: Awake and alert, GCS 15, oriented to person, place, time, and situation. Cranial nerves II-XII grossly intact. Motor strength 5/5 in all extremities. Sensory grossly intact. Cerebellar exam normal. Normal gait. Psych: Awake, alert, with orientation to person, place and time. Behavior, mood, and affect are within normal limits. 02:02 Respiratory: mild respiratory distress is noted, Breath sounds: bronchial sounds, that are mild, decreased breath sounds, that are mild, are scattered, rhonchi, that are mild, are located in both bases, wheezing: expiratory is heard diffusely, Respiratory rate: 20 03:37 ECG was reviewed by the Attending Physician. [facility] Vital Signs: 01:55 BP 193 / 121; Pulse 99; Resp 19; Temp 98; Pulse Ox 99% ; Weight 135.17 kg; Height 5 ft. rr5 5 in. (165.10 cm); Pain 0/10; 03:00 BP 189 / 105; Pulse 95; Resp 18; Pulse Ox 98% ; rr5 04:00 BP 186 / 110; Pulse 107; Resp 20; Pulse Ox 99% ; rr5 05:00 BP 178 / 105; Pulse 110; Resp 22; Pulse Ox 98% ; rr5 06:00 BP 162 / 100; Pulse 111; Resp 18; Pulse Ox 97% ; rr5 06:41 BP 166 / 99; Pulse 102; Resp 20; Pulse Ox 97% ; rr5 01:55 Body Mass Index 49.59 (135.17 kg, 165.10 cm) rr5 MDM: 01:51 Patient medically screened. [facility] 02:03 Differential diagnosis: asthma, Bronchitis CHF exacerbation, Chronic Obstructive caitlyn Pulmonary Disease reactive airway, CHF, anaphylaxis, URI, Myocardial Infarction Pneumothorax pulmonary edema, Pulmonary Embolism reactive airway disease, Unstable Angina. Antibiotic administration: Not indicated. The patient's Wells Deep Vein Thrombosis Score was calculated as follows: Total Score: 0-2 Pts- Low Risk. Differential Diagnosis: Bronchitis Influenza Upper Respiratory Infection Asthma Exacerbation Pneumonia. The patient's pulmonary embolism risk score was calculated as follows: Total Score: 0-2 points. This patient was found to be at low risk for a pulmonary embolism by using the Well's assessment criteria. Immunization status:. Data reviewed: vital signs, nurses notes, lab test result(s), EKG, radiologic studies, plain films. Data interpreted: hall monitor: rate is 99 beats/min, rhythm is regular, Pulse oximetry: on. Test interpretation: by ED physician or midlevel provider: ECG, plain radiologic studies. 03:34 ED course: new chf, possible viral pna, hx hypertension. [facility] 06/01 02:00 Order name: Basic Metabolic Panel; Complete Time: 03:29 [facility] 06/01 02:00 Order name: CBC with Diff; Complete Time: 03:04 [facility] 06/01 02:00 Order name: LFT's; Complete Time: 03:29 [facility] 06/01 02:00 Order name: Magnesium; Complete Time: 03: [facility] 06/01 02:00 Order name: NT PRO-BNP; Complete Time: 03: [facility] 06/01 02:00 Order name: Troponin (emerg Dept Use Only); Complete Time: 03:29 [facility] 06/01 02:00 Order name: Blood Culture Adult (2) [facility] 06/01 02:00 Order name: D-Dimer; Complete Time: 03:11 [facility] 06/01 04:06 Order name: Urine Microscopic Only; Complete Time: 07:08 rr5 06/01 04:18 Order name: SARS-COV-2 RT PCR; Complete Time: 07:08 [facility]AL 06/01 04:34 Order name: Urine Culture [facility] 06/01 04:45 Order name: Urinalysis [facility] 06/01 04:45 Order name: Basic Metabolic Panel [facility] 06/01 02:00 Order name: XRAY Chest (1 view) [facility] 06/01 03:05 Order name: CT Chest For PE Angio [facility] 06/01 04:45 Order name: Basic Metabolic Panel [facility] 06/01 04:45 Order name: CBC with Automated Diff [facility] 06/01 04:45 Order name: CBC with Automated Diff [facility] 06/01 04:45 Order name: Magnesium [facility] 06/01 04:45 Order name: Magnesium [facility] 06/01 02:00 Order name: EKG; Complete Time: 02:01 [facility] 06/01 02:00 Order name: Cardiac monitoring; Complete Time: 02:57 [facility] 06/01 02:00 Order name: EKG - Nurse/Tech; Complete Time: 02:57 [facility] 06/01 02:00 Order name: IV Saline Lock; Complete Time: 02:57 [facility] 06/01 02:00 Order name: Labs collected and sent; Complete Time: 02:57 [facility] 06/01 02:00 Order name: O2 Per Protocol; Complete Time: :57 [facility] 06/01 02:00 Order name: O2 Sat Monitoring; Complete Time: :57 [facility] 06/01 02:00 Order name: Urine Dipstick-Ancillary (obtain specimen); Complete Time: 04:06 [facility] 06/01 04:45 Order name: Consistent Carb (ADA) [address] EDMS EC:37 Rate is 90 beats/min. Rhythm is regular. QRS Cody is Normal. NH interval is normal. QRS caitlyn interval is normal. QT interval is prolonged at 469 msec. No Q waves. T waves are Normal. No ST changes noted. Clinical impression: NSR w/ Non-specific ST/T Changes and No evidence of ischemia. Interpreted by me. Reviewed by me. Administered Medications: Discontinued: NS 0.9% 1000 ml IV at 75 ml/hr continuous 02:56 Drug: NS 0.9% 1000 ml Route: IV; Rate: 75 ml/hr; Site: left forearm; rr5 03:16 Follow up: Response: No adverse reaction; IV Status: Order to discontinue infusion rr5 03:15 Drug: Lasix 20 mg Route: IVP; Site: left forearm; rr5 04:15 Follow up: Response: No adverse reaction rr5 03:34 CANCELLED (Duplicate Order): hydrALAZINE 5 mg IV at per protocol once caitlyn 03:34 CANCELLED (Duplicate Order): hydrALAZINE 5 mg IV at per protocol once caitlyn 04:15 Drug: Aspirin Chewable Tablet 324 mg Route: PO; rr5 05:10 Follow up: Response: No adverse reaction rr5 04:17 Drug: Potassium Effervescent Tablet 50 mEq Route: PO; rr5 05:10 Follow up: Response: No adverse reaction rr5 04:20 Drug: Pepcid 20 mg Route: IVP; Site: left forearm; rr5 05:20 Follow up: Response: No adverse reaction rr5 04:28 Drug: Tylenol 1000 mg Route: PO; rr5 05:20 Follow up: Response: No adverse reaction rr5 04:28 Drug: hydrALAZINE 10 mg Route: PO; rr5 05:20 Follow up: Response: No adverse reaction; Blood pressure is lowered rr5 04:30 Drug: Rocephin 1 grams Route: IV; Rate: per protocol; Site: left forearm; rr5 05:30 Follow up: Response: No adverse reaction; IV Status: Completed infusion; IV Intake: [id number] 04:35 Drug: Lasix 20 mg Route: IVP; Site: left forearm; rr5 06:37 Follow up: Response: No adverse reaction rr5 04:38 Drug: Lovenox 1 mg/kg Route: Sub-Q; Site: left lower abdomen; rr5 05:30 Follow up: Response: No adverse reaction rr5 04:40 Drug: Nitro-Bid Ointment 2 % 1 inches Route: Transdermal; Site: anterior chest wall; rr5 05:40 Follow up: Response: No adverse reaction rr5 04:40 Drug: Decadron - Dexamethasone 6 mg Route: IVP; Site: left forearm; rr5 05:30 Follow up: Response: No adverse reaction rr5 04:42 Dru mg of (Zithromax 500 mg, NS 0.9% 250 ml) Route: IVPB; Infused Over: 1 hrs; rr5 Site: left forearm; 05:40 Follow up: Response: No adverse reaction; IV Status: Completed infusion; IV Intake: rr5 250ml Disposition: 06/01/20 03:37 Hospitalization ordered by Triston Carter for Inpatient Admission. Preliminary diagnosis are Cardiomegaly, Essential (primary) hypertension, Type 2 diabetes mellitus, Obesity, unspecified, Systolic (congestive) heart failure, Dyspnea - atypical pneumonia, Hypokalemia, Pleural effusion in conditions classified elsewhere. - Bed requested for Telemetry/MedSurg (observation). - Status is Inpatient Admission. ph - Condition is Fair. - Problem is new. - Symptoms have improved. Signatures: Dispatcher [employer] EDMS Ciro Leavitt MD MD cha Lasagna, Tonya RN RN tl1 Kat Lama RN RN Magdaleno Carrizales RN RN rr5 Corrections: (The following items were deleted from the chart) 03:34 03:32 hydrALAZINE 5 mg IV at per protocol once ordered. caitlyn brady 03:34 03:32 hydrALAZINE 5 mg IV at per protocol once ordered. caitlyn brady 04:17 02:01 CORONAVIRUS+MR.LAB.BRZ ordered. EDAL EDMS 04:19 03:37 Hospitalization Ordered by Triston aCrter for Inpatient Admission. Preliminary caitlyn diagnosis is Cardiomegaly; Essential (primary) hypertension; Type 2 diabetes mellitus; Obesity, unspecified; Systolic (congestive) heart failure; Dyspnea; Hypokalemia. Bed requested for Telemetry/MedSurg (observation). Status is Inpatient Admission. Condition is Fair. Problem is new. Symptoms have improved. caitlyn 04:34 04:19 06/01/2020 03:37 Hospitalization Ordered by Triston Carter for Inpatient caitlyn Admission. Preliminary diagnosis is Cardiomegaly; Essential (primary) hypertension; Type 2 diabetes mellitus; Obesity, unspecified; Systolic (congestive) heart failure; Dyspnea - atypical pneumonia; Hypokalemia. Bed requested for Telemetry/MedSurg (observation). Status is Inpatient Admission. Condition is Fair. Problem is new. Symptoms have improved. [facility] 05:52 04:34 06/01/2020 03:37 Hospitalization Ordered by Triston Carter for Inpatient tl1 Admission. Preliminary diagnosis is Cardiomegaly; Essential (primary) hypertension; Type 2 diabetes mellitus; Obesity, unspecified; Systolic (congestive) heart failure; Dyspnea - atypical pneumonia; Hypokalemia; Pleural effusion in conditions classified elsewhere. Bed requested for Telemetry/MedSurg (observation). Status is Inpatient Admission. Condition is Fair. Problem is new. Symptoms have improved. caitlyn 07:34 05:52 06/01/2020 03:37 Hospitalization Ordered by Triston Carter for Inpatient ph Admission. Preliminary diagnosis is Cardiomegaly; Essential (primary) hypertension; Type 2 diabetes mellitus; Obesity, unspecified; Systolic (congestive) heart failure; Dyspnea - atypical pneumonia; Hypokalemia; Pleural effusion in conditions classified elsewhere. Bed requested for Telemetry/MedSurg (observation). Status is Inpatient Admission. Condition is Fair. Problem is new. Symptoms have improved. tl1
[2020-06-01] MEDS ORDERED: ASPIRIN 81 MG CHEWABLE TABLET ONE (04:03)
[2020-06-01] MEDS ORDERED: ACETAMINOPHEN 500 MG TAB ONE (04:04)
[2020-06-01] MEDS ORDERED: ENOXAPARIN 100 MG/ML SYR SQ ONE (04:04)
[2020-06-01] MEDS ORDERED: CEFTRIAXONE 1000 MG/VIAL ONE (04:04)
[2020-06-01] MEDS ORDERED: POTASSIUM 25 MEQ EFFERV TAB ONE (04:04)
[2020-06-01] MEDS ORDERED: NITROGLYCERIN 1 GM PKT TD ONE (04:04)
[2020-06-01] MEDS ORDERED: HYDRALAZINE HCL 10 MG TABLET ONE (04:04)
[2020-06-01] MEDS ORDERED: ENOXAPARIN 30 MG/0.3 ML SQ ONE (04:05)
[2020-06-01] MEDS ORDERED: FAMOTIDINE 20 MG/2 ML VIAL IV ONE (04:05)
[2020-06-01 04:33] LABS: Urine Amorphous Sediment 1+ /HPF (NONE SEEN); Urine Bacteria >50 /HPF (NONE SEEN); Urine Culture Reflex Order REFLEXED; Urine Mucus 1+ /HPF (NONE SEEN); Urine RBC <5 /HPF (NONE SEEN)
[2020-06-01] MEDS ORDERED: dexAMETHasone 10 MG/ML VIAL ONE (04:41)
[2020-06-01] MEDS ORDERED: AZITHROMYCIN 500 MG INJ IVPB ONE (04:41)
[2020-06-01] MEDS ORDERED: NA CHLORIDE 0.9% 250 ML ONE (04:42)
--- NOTE | 2020-06-01 04:56 | P.HP ---
Certification for Inpatient With expected LOS: >2 Midnights Patient will require the following post-hospital care: None Practitioner: I am a practitioner with admitting privileges, knowledge of patient current condition, hospital course, and medical plan of care. Services: Services provided to patient in accordance with Admission requirements found in Title 42 Section 412.3 of the Code of Federal Regulations <Bradly Dial - Last Filed: 06/01/20 04:49> Patient History Date of Service: 06/01/20 Reason for admission: Congestive heart failure with acute exacerbation History of Present Illness: 45 morbidly obese male with a past medical history of type 2 diabetes mellitus, obstructive sleep apnea and hypertension presents to the emergency complaining of shortness of breath that started 2 days ago and progressively worsened. States it is worse with light activity. In the emergency room patient is found to be alert and oriented and in no distress. He is pleasant and cooperative. O2 saturations are 99% a room air. Pulse rate of 99 and a blood pressure 193/121. Temperature of 98. ProBNP is elevated at 3940, blood glucose of 206, creatinine of 1.2 and a GFR of 65. D- dimer was elevated at 1060. Rest of lab work is fairly unremarkable. EKG was unremarkable. Chest CT rule out PE shows no pulmonary embolism. Images are gallagher ggestive of heart failure exacerbation with a slightly enlarged heart. And less likely pneumonia. Patient had an echocardiogram done in October of 2019 which showed an EF of 60-69%. Chest x-ray shows slightly enlarged heart. This is likely a new onset congestive heart failure with acute exacerbation and less likely pneumonia. Covid screening is pending. Patient was given IV antibiotics empirically in the ER. Patient has been taking azithromycin as well. He had seen Dr. Luke yesterday and was started on oral azithromycin. His symptoms did not improve. Patient will be admitted and further evaluated. - Past Medical/Surgical History Diabetic: Yes -: DM-Type 2 -: HTN -: Sleep Apnea -: Appendectomy Psychosocial/ Personal History: Lives at home with and daughter - Family History Mother -: Diabetes, Cancer Notes: Ovarian - Social History Smoking Status: Current every day smoker Alcohol use: Yes CD- Drugs: No Caffeine use: Yes Place of Residence: Home <DanielkayleyBradly ro - Last Filed: 06/01/20 04:49> Date of Service: 06/01/20 <elenibert ingram - Last Filed: 06/01/20 14:51> Allergies lisinopril Adverse Reaction (Severe, Verified 10/10/19 20:26) Shortness of breath Home Medications: Hydralazine HCl [Apresoline] 50 mg PO BID 10/21/17 Metformin HCl 1,000 mg PO BIDWM 10/21/17 Sitagliptin Phosphate [Januvia*] 100 mg PO DAILY 10/21/17 dilTIAZem HCl [Diltiazem 24Hr ER (Cd)] 360 mg PO DAILY 10/21/17 Glimepiride [Amaryl*] 4 mg PO BID 10/09/19 Review of Systems General: As per HPI Eyes: Unremarkable ENT: Unremarkable Respiratory: Shortness of Breath, SOB with Excertion, Other (Obstructive sleep apnea), As per HPI Cardiovascular: Unremarkable Gastrointestinal: Unremarkable Genitourinary: Unremarkable Musculoskeletal: Unremarkable Integumentary: Unremarkable Neurological: Unremarkable Lymphatics: Unremarkable <Bradly Dial - Last Filed: 06/01/20 04:49> Physical Examination - Vital Signs Temperature: 98 F Blood Pressure: 193/121 Pulse: 99 Respirations: 19 Pulse Ox (%): 99 (RA) - Physical Exam General: Alert, In no apparent distress, Oriented x3, Obese HEENT: Atraumatic, Normocephalic, PERRLA, Mucous membr. moist/pink Neck: Supple, No Thyromegaly, Other (Trachea midline) Respiratory: Clear to auscultation bilaterally, Diminished (By basal) Cardiovascular: Normal pulses, Other (Tachycardia), Edema (Bilateral lower extremity) Capillary refill: <2 Seconds Gastrointestinal: Normal bowel sounds, Soft and benign, Non-distended Musculoskeletal: No clubbing, No swelling, No contractures, No erythema Integumentary: No rashes, No breakdown, No significant lesion, No tenderness/swelling Neurological: Normal gait, Normal speech, Normal strength at 5/5 x4 extr, Normal tone - Studies Laboratory Data (last 24 hrs) 06/01/20 02:35: WBC 8.4, Hgb 15.6, Hct 47.3, Plt Count 219 06/01/20 02:35: Sodium 142, Potassium 3.3 L, BUN 8, Creatinine 1.20, Glucose 206 H, Magnesium 1.9, Total Bilirubin 0.4, AST 16, ALT 17, Alkaline Phosphatase 77 <Bradly Dial - Last Filed: 06/01/20 04:49> - Studies Laboratory Data (last 24 hrs) 06/01/20 02:35: WBC 8.4, Hgb 15.6, Hct 47.3, Plt Count 219 06/01/20 02:35: Sodium 142, Potassium 3.3 L, BUN 8, Creatinine 1.20, Glucose 206 H, Magnesium 1.9, Total Bilirubin 0.4, AST 16, ALT 17, Alkaline Phosphatase 77 <elenijuan josebert - Last Filed: 06/01/20 14:51> Assessment and Plan - Plan Impression: Congestive heart failure with acute exacerbation complicated by a small bilateral pleural effusions: Essential hypertension: Type 2 diabetes mellitus: Plan: Congestive heart failure with acute exacerbation complicated by a small bilateral pleural effusions: Will start IV Lasix 40 mg b.i.d., echocardiogram for the morning. Patient may require cardiology consult based on findings of echocardiogram. Will place on telemetry. Covid screening pending. Patient was noted to have an elevated D-dimer of 1060. CT of the chest to rule out PE was negative for PE and suggest likely CHF exacerbation. Echocardiogram from October of 2019 shows an EF of between 60 and 65%. Essential hypertension: Hypertensive on arrival to ED. Blood pressure 193/121. Will order hydralazine 10 mg q.4 hr p.r.n. for systolic blood pressure greater than 160 and a diastolic blood pressure greater than 100. Monitor blood pressure. Type 2 diabetes mellitus: Accu-Cheks a.c. HS. Diabetic diet. Sliding scale insulin. Discharge Plan: Home - Advance Directives Does patient have a Living Will: No Does patient have a Durable POA for Healthcare: No - Code Status/Comfort Care Code Status Assessed: Yes Time Spent Managing Pts Care (In Minutes): 55 <Bradly Dial - Last Filed: 06/01/20 04:49> Physician Review: Patient Assessed, Agree with Above Assessment and Plan Physician Review Additional Text: Patient seen and examined. Morbid obesity. Uncontrolled hypertension Elevated BNP. Echocardiogram reviewed: Normal EF. I suspect pulmonary hypertension causing elevated BNP or acute diastolic heart failure secondary to salt indiscretion uncontrolled hypertension. Clinically improved. Troponin negative. Plan: Resume home antihypertensives. IV Lasix Resume glimepiride and januvia. Insulin sliding scale for glucose management. <bert glasgow - Last Filed: 06/01/20 14:51>
[2020-06-01] MEDS ORDERED: HYDRALAZINE HCL 20 MG/ML VIAL IV PRN (05:07)
--- NOTE | 2020-06-01 07:20 | EKG ---
Test Date: 2020-06-01 Test Time: 02:50:26 Webbing Weaver: RR MEASUREMENT RESULTS: Intervals: Rate: 90 ND: 146 QRSD: 106 QT: 384 QTc: 469 [place]: P: 37 ND: 146 QRS: 59 T: 41 INTERPRETIVE STATEMENTS: Normal sinus rhythm Prolonged QT Abnormal ECG Compared to ECG 10/09/2019 14:52:00 Prolonged QT interval now present T-wave abnormality no longer present Electronically Signed On 06-01-20 07:19:50 CDT by Natalio Whitfield
--- NOTE | 2020-06-01 07:20 | RAD REPORT ---
EXAM DESCRIPTION: [place] Single View06/01/2020 2:25 am CLINICAL HISTORY: Cough COMPARISON: October 2019 FINDINGS: Mild bilateral pulmonary opacities. Heart is mildly enlarged IMPRESSION: Mild bilateral pulmonary opacities may represent pneumonia or pulmonary edema
[2020-06-01] MEDS: FUROSEMIDE 40 MG/4 ML VIAL IV SCH ×2 (08:44→17:39)
[2020-06-01] MEDS: INSULIN -REGULAR HUMAN 50 UNIT/0.5 ML ML SQ SCH ×4 (08:45→21:45)
[2020-06-01] MEDS: ENOXAPARIN 40 MG/0.4 ML SQ SCH (08:49)
[2020-06-01] MEDS ORDERED: PNEUMOCOCCAL VACCINE 0.5 ML IMVAC ONE (09:00)
[2020-06-01 09:38] LABS: Urine Appearance CLEAR; Urine Bilirubin NEGATIVE (NEG); Urine Blood NEGATIVE (NEG); Urine Color YELLOW; Urine Glucose 1+ (NEG); Urine Protein 3+ (NEG); Urine Specific Gravity 1.015 (1.005-1.030); Urine Urobilinogen 0.2 mg/dL (0.2-1.0)
[2020-06-01 09:40] LABS: Urine Microscopic Reflex ORDER UMIC
[2020-06-01 10:07] LABS: Urine Bacteria <20 /HPF (NONE SEEN); Urine Culture Reflex Order NOT NEEDED; Urine RBC <5 /HPF (NONE SEEN)
[2020-06-01] MEDS: HYDRALAZINE HCL 25 MG TABLET PO SCH (15:56)
[2020-06-01] MEDS: DILTIAZEM HCL 180 MG SR CAP PO SCH (15:57)
--- NOTE | 2020-06-01 17:17 | RAD REPORT ---
EXAM DESCRIPTION: CT - Chest For Pe Angio - 06/01/2020 6:41 am\ CLINICAL HISTORY: Congestion; Cough ; Dyspnea COMPARISON: None. TECHNIQUE: Chest CTA axial images acquired with IV contrast. Coronal and sagittal CTA MIPs and MPRs created. Exam performed according to departmental dose-optimization program which includes automated exposure control, adjustment of mA and/or kV according to patient size, and/or use of iterative recon struction technique. FINDINGS: Heart size mildly enlarged. No pericardial effusion. Small bilateral pleural effusions. No pneumothorax. No evidence of pulmonary embolism. Thoracic and proximal abdominal aorta unremarkable. Moderate to marked bilateral ground glass lung opacities. Some areas of bilateral interlobular septal thickening. Thoracic spine degenerative disease. IMPRESSION: Mild cardiomegaly, small bilateral pleural effusions, and [id number] bilateral g round glass lung opacities and interlobular septal thickening. Above findings may represent congestive heart failure exacerbation. Clinical correlation recommended. The lung opacities more likely represent acute and interstitial pulmonary edema, however atypical inf ection (including viral) cannot be completely excluded. COVID-19 Pneumonia Imaging Classification: Atypical Appearance \[id number]\Imaging features are atypical or uncommonly reported for (COVID-19 or viral) pneumonia. Altern ative diagnoses should be considered. PneAty\[id number] Electronically signed by: John Paul Mccauley MD 06/01/2020 4:24 AM CDT Due to temporary technical issues with the PACS/Fluency reporting system, reports are being signed by the in house radiologist without review as a courtesy to ensure prompt reporting. The interpreting r adiologist is fully responsible for the content of the report.
[2020-06-01] MEDS: GLIMEPIRIDE 2 MG TABLET PO SCH (17:39)
[2020-06-01] MEDS ORDERED: HOME MED 1 EA UNK (Hydralazine Hcl [Apresoline] 50 MG) PO SCH (21:00)
[2020-06-02 06:39] LABS: Absolute Lymphocytes (CBC) 1.3 K/uL (0.7-4.9); Basophils % 0.3 % (0-1.3); Hematocrit 44.5 % (39.6-49.0); Lymphocytes % 14.5 % (15.3-44.8); MPV 9.3 fL (7.6-11.3)
[2020-06-02 06:43] VITALS: BMI 47.5
[2020-06-02 06:51] LABS: Magnesium 2.1 mg/dL (1.8-2.4); Potassium 3.6 mmol/L (3.5-5.1)
[2020-06-02] MEDS: FUROSEMIDE 40 MG/4 ML VIAL IV SCH (08:58)
[2020-06-02] MEDS: ENOXAPARIN 40 MG/0.4 ML SQ SCH (08:59)
[2020-06-02] MEDS: DILTIAZEM HCL 180 MG SR CAP PO SCH (08:59)
[2020-06-02] MEDS: GLIMEPIRIDE 2 MG TABLET PO SCH (08:59)
[2020-06-02] MEDS: HYDRALAZINE HCL 25 MG TABLET PO SCH (08:59)
[2020-06-02] MEDS ORDERED: SITAGLIPTIN PHOS 100 MG TAB PO SCH (09:00)
[2020-06-02] MEDS ORDERED: POTASSIUM 25 MEQ EFFERV TAB PO ONE (09:00)
[2020-06-02] MEDS ORDERED: DILTIAZEM HCL 360 MG PO SCH (09:00)
[2020-06-02] MEDS: INSULIN -REGULAR HUMAN 50 UNIT/0.5 ML ML SQ SCH ×2 (09:01→12:16)
--- NOTE | 2020-06-02 11:30 | P.DS ---
Admission Date: 06/01/20 Discharge Date: 06/02/20 Disposition: ROUTINE DISCHARGE Discharge Condition: FAIR Reason for Admission: Congestive heart failure with acute exacerbation - Problems (1) Acute diastolic heart failure Current Visit: Yes Status: Acute (2) Malignant hypertension Current Visit: Yes Status: Acute (3) DM type 2 (diabetes mellitus, type 2) Current Visit: No Status: Acute (4) Obstructive sleep apnea Current Visit: No Status: Acute Brief History of Present Illness: 45-year-old morbidly obese gentleman with a history of obstructive sleep, hypertension and diabetes mellitus type 2, compliant with medications presented to the emergency department with a complaint of acute onset shortness of breath and cough. CTA thorax done showed evidence of interstitial pulmonary edema and pleural effusion. Initial troponin was negative. EKG unremarkable. His blood pressure was elevated. Patient was admitted for further management. Hospital Course: Patient admitted to the medical floor and treated with IV Lasix. Patient's symptoms improved rapidly with treatment. He did not require oxygen. He denied any chest pain. His blood pressure was elevated. Patient was placed on home antihypertensives. Will add oral metoprolol for better blood pressure control on discharge. He had an echocardiogram done in October 2019 3 showed normal EF. I suspect patient had flash pulmonary edema related to severe hypertension. Patient has clinically improved, now asymptomatic. He will be discharged to follow with Dr. Whitfield as an outpatient. Vital Signs/Physical Exam: Temp Pulse Resp BP Pulse Ox 96.6 F L 92 H 18 178/87 H 100 06/02/20 08:00 06/02/20 08:58 06/02/20 08:00 06/02/20 08:58 06/02/20 08:00 General: Alert, In no apparent distress HEENT: Mucous membr. moist/pink Neck: Supple, JVD not distended Respiratory: Clear to auscultation bilaterally, Normal air movement Cardiovascular: Regular rate/rhythm, Normal S1 S2, Edema (Trace bilateral pitting edema) Capillary refill: <2 Seconds Gastrointestinal: Normal bowel sounds, Soft and benign, No tenderness Musculoskeletal: No erythema Neurological: Other (Nonfocal) Laboratory Data at Discharge: WBC 9.2 K/uL (4.3-10.9) 06/02/20 06:06 Hgb 15.1 g/dL (13.6-17.9) 06/02/20 06:06 Hct 44.5 % (39.6-49.0) 06/02/20 06:06 Plt Count 227 K/uL (152-406) 06/02/20 06:06 Sodium 142 mmol/L (136-145) 06/02/20 06:06 Potassium 3.6 mmol/L (3.5-5.1) 06/02/20 06:06 BUN 14 mg/dL (7-18) 06/02/20 06:06 Creatinine 1.33 mg/dL (0.55-1.3) H 06/02/20 06:06 Glucose 152 mg/dL (74-106) H 06/02/20 06:06 Magnesium 2.1 mg/dL (1.8-2.4) 06/02/20 06:06 Total Bilirubin 0.4 mg/dL (0.2-1.0) 06/01/20 02:35 AST 16 U/L (15-37) 06/01/20 02:35 ALT 17 U/L (12-78) 06/01/20 02:35 Alkaline Phosphatase 77 U/L (45-117) 06/01/20 02:35 Home Medications: Hydralazine HCl [Apresoline] 50 mg PO BID 10/21/17 Metformin HCl 1,000 mg PO BIDWM 10/21/17 Sitagliptin Phosphate [Januvia*] 100 mg PO DAILY 10/21/17 dilTIAZem HCl [Diltiazem 24Hr ER (Cd)] 360 mg PO DAILY 10/21/17 Glimepiride [Amaryl*] 4 mg PO BID 10/09/19 Furosemide [Lasix] 40 mg PO DAILY PRN #30 tab 06/02/20 Metoprolol Tartrate 25 mg PO BID #60 tablet 06/02/20 New Medications: Furosemide [Lasix] 40 mg PO DAILY PRN #30 tab PRN Reason: Swelling Metoprolol Tartrate 25 mg PO BID #60 tablet Diet: ADA Activity: Ad suly Time spent managing pt's care (in minutes): 42
[2020-06-02 12:49] VITALS: O2SAT 100
[2020-06-02 13:58] VITALS: BP 157/80
[2020-06-02 14:07] VITALS: TEMP 97
--- NOTE | 2020-06-02 18:52 | CON ---
Date of Consultation: 06/02/2020 Reason For Consultation: Acute systolic congestive heart failure. History Of Present Illness: Mr. Stevenson is a 45-year-old male, who has a history of obesity, diabetes, hypertension, tobacco use, family history of heart disease, who came in complaining with c ough and shortness of breath. Symptoms have been going off for about 2 days. He had pneumonia in [facility] of 2019. He had PND, orthopnea, and pedal edema, but no palpitation or syncope. He had some sharp chest pain, but no nausea, vomiting, diaphoresis, fevers, or chills. He was found to have an e jection fraction that was normal with diastolic dysfunction on echocardiogram. He is already diurese d and feeling well by the time I saw him. Past Medical History: As stated above. Allergies: NONE. Review of Systems: Negative. Social History: Positive for tobacco. Family History: Positive for heart disease. Medications: At home include diltiazem, hydralazine, glimepiride, Januvia, and metformin. Physical Examination: Vital Signs: He weighed 298 pounds on admission and 285 pounds the day after. His blood pressure is 157/80 with a pulse of 91 and sinus rhythm, respiratory rate was 16 with an O2 saturation of 97%. HEENT: Negative. Neck: Supple without any bruit, lymphadenopathy, JVD, or thyromegaly. Chest: Clear to auscultation and percussion. Cardiac: Regular rhythm and rate with an S4 gallops. No murmurs or rubs. Abdomen: Obese, but benign. Extremities: 1+ edema. Skin: Dry and intact. Neurologic: He was nonfocal. Pulses were present distally bilaterally. Diagnostic Data: His creatinine is 1.20. His I's and O's were adequate. His hemoglobin was 15.1. He has a D-dimer of 1060. His BNP was 3940 with a negative troponin. Impression And Plan: 1.Acute diastolic congestive heart failure. 2.Obesity. 3.Hypertension. 4.Diabetes. 5.Dyslipidemia. 6.Elevated troponin and BNP secondary to congestive heart failure. 7.Mild renal insufficiency. Mr. Stevenson has done well with diuresis so far and has lost significant weight. He is feeling better. He had a negative CTA for pulmonary embolism. He had mild cardiomegaly. He had moderate to marked bilateral ground-glass lung opacities may be suggestive of his old pneumonia. His chest x-ray was c onsistent with pulmonary edema. I believe Mr. Stevenson can go home today. I have one concern and is t hat he is on a calcium gurdeep. I think he would do better with a beta-gurdeep, hydralazine, and Las ix, and maybe a low dose JAMIE inhibitor considering he is a diabetic for blood pressure control as wel l as CHF. I think he needs to watch his salt intake, he needs to watch his fluid intake, he needs to watch his weight, he needs to quit smoking, he needs to come see me in my office in the near future. I think he definitely needs an outpatient Myoview to rule out coronary artery disease. He has many risk factors. The case was discussed with Dr. Carter. ALVARO/MANNY Voice ID: [id number] Report ID: [id number]
--- NOTE | 2020-06-04 08:20 | ECHO ---
HEIGHT: 5 ft 5 in WEIGHT: 285 lb 8 oz DATE OF STUDY: 06/02/[address]: Bradly Dial 2-DIMENSIONAL: YES M.MODE: YES DOPPLER: YES COLOR FLOW: YES TDS: YES PORTABLE: DEFINITY: BUBBLE STUDY: DIAGNOSIS: CONGESTIVE HEART FAILURE CARDIAC HISTORY: CATHERIZATION: SURGERY: PROSTHETIC VALVE: PACEMAKER: MEASUREMENTS (cm) DIASTOLIC (NORMALS) SYSTOLIC (NORMALS) IVSd 1.2 (0.6-1.2) LA Diam 3.8 (1.9-4.0) LVEF 55-60% LVIDd 4.6 (3.5-5.7) LVIDs 3.6 (2.0-3.5) %FS % LVPWd 1.4 (0.6-1.2) Ao Diam 3.0. (2.0-3.7) 2 DIMENSIONAL ASSESSMENT: RIGHT ATRIUM: NORMAL LEFT ATRIUM: NORMAL RIGHT VENTRICLE: NORMAL LEFT VENTRICLE: LEFT VENTRICULAR HYPERTROPHY TRICUSPID VALVE: NORMAL MITRAL VALVE: NORMAL PULMONIC VALVE: NORMAL AORTIC VALVE: NORMAL PERICARDIAL EFFUSION: NONE AORTIC ROOT: NORMAL LEFT VENTRICULAR WALL MOTION: NORMAL EJECTION FRACTION DOPPLER/COLOR FLOW: MILD TRICUSPID REGURGITATION COMMENTS: DIASTOLIC DYSFUNCTION. MILD TRICUSPID REGURGITATION. LEFT VENTRICULAR HYPERTROPHY. EJECTION FRACTION 55-60%. TECHNOLOGIST: SANGEETA RIVERA/ SUDHIR PANG
== END 2020-06-02 15:09 | disposition home or self-care (01) | DRG 291 ==
LOC: ER 01:38 → ERHOLD 06:15 → 2ND 07:17
PROVIDERS: ADMIT Internal Medicine; ATTEND Internal Medicine
DX: I11.0 Hypertensive heart disease with heart failure (principal); I50.31 Acute diastolic (congestive) heart failure; Z68.42 Body mass index [BMI] 45.0-49.9, adult; E66.01 Morbid (severe) obesity due to excess calories; G47.33 Obstructive sleep apnea (adult) (pediatric); E78.5 Hyperlipidemia, unspecified; N28.9 Disorder of kidney and ureter, unspecified; E11.9 Type 2 diabetes mellitus without complications; Z79.84 Long term (current) use of oral hypoglycemic drugs; Z79.899 Other long term (current) drug therapy; Z90.49 Acquired absence of other specified parts of digestive tract; Z20.828 Contact with and (suspected) exposure to other viral communicable diseases
CPT/HCPCS: 36415; 71045; 71275; 80048; 80076; 81003; 81015; 82947; 83605; 83735; 83880; 84484; 85025; 85379; 87040; 87086; 87088; 93005; 93306; 96365; 96372; 96375; 99285; J0360; J0456; J1100; J1650; J1940; J7030; J7050; Q9967; U0003

== ENCOUNTER 2020-06-14 07:42 | Day surgery (SDC) | payer OTHER ==
[2020-06-12 13:15] LABS: Protime INR 0.93
--- NOTE | 2020-06-12 13:28 | RAD REPORT ---
EXAM DESCRIPTION: [facility] [employer] (2 Views)06/12/2020 12:44 pm CLINICAL HISTORY: Hypertension/preop for cardiac catheterization COMPARISON: May 2020 FINDINGS: Lungs appear clear of acute infiltrate. The heart is mildly enlarged
[2020-06-14] MEDS ORDERED: NA CHLORIDE 0.9% 500 ML ONE (08:06)
[2020-06-14] MEDS ORDERED: HEPA 1000U/500MLS 1,000 UNIT/500 ML BAG IV ONE (08:37)
[2020-06-14] MEDS ORDERED: NA CHLORIDE 0.9% 0 ML ONE (08:38)
[2020-06-14] MEDS ORDERED: ATROPINE SULF 1 MG/10 ML SYR IV ONE (08:38)
[2020-06-14] MEDS ORDERED: MIDAZOLAM HCL 2 MG/2 ML INJ ONE ×3 (08:38→09:20)
[2020-06-14] MEDS ORDERED: FENTANYL CITR 100 MCG/2 ML ONE (08:38)
--- NOTE | 2020-06-14 10:38 | OP ---
Surgeon: Natalio Whitfield MD Biomedical Engineering Aide: Purnima Jiménez. The patient will be at bedrest after Angio-Seal for 2 hours. He will be going home and I will see eran scott in the office in the next 2 weeks. Procedure: Left heart catheterization, selective coronary arteriogram, that were done because of pos itive stress test and chest pain. Procedure In Detail: Mr. Stevenson is a 45-year-old [place] male. He has morbid obesity, hypert ension, diabetes, dyslipidemia, tobacco use, family history of heart disease, came into the hospital with chest pain, ruled out. Had a normal EKG in the office. He had a normal echocardiogram, but a s tress test showed positive ischemia. He was brought to the labor representative today as an outpatient, prepped and draped in the routine sterile fashion. A 6-Burmese sheath was introduced in the right common femo ral artery successfully. JL4 and JR4 catheter were used to do the angiography of the left main and r ight main respectively. The RCA was very large, dominant, without any plaquing. Circumflex was norm al. Left main was normal. The LAD had about a 30% to 40% mid LAD stenosis, not severe enough for an y intervention. Complications: There were no complications. Blood Loss: 5 mL. Postoperative Diagnosis: Mild coronary artery disease. Plan: Plan is for medical therapy. I will add Lipitor to his regimen 80 mg daily. Anesthesia: Total conscious sedation was 30 minutes. ALVARO/MANNY Voice ID: [id number] Report ID: [id number]
[2020-06-14 12:16] VITALS: BP 153/76; TEMP 97.6; O2SAT 100
== END 2020-06-14 12:04 | disposition home health service (06) ==
LOC: CCL 07:42
DX: I25.10 Atherosclerotic heart disease of native coronary artery without angina pectoris (principal); I10 Essential (primary) hypertension; E78.5 Hyperlipidemia, unspecified; E11.9 Type 2 diabetes mellitus without complications; G47.33 Obstructive sleep apnea (adult) (pediatric); E66.01 Morbid (severe) obesity due to excess calories; Z68.42 Body mass index [BMI] 45.0-49.9, adult; F17.210 Nicotine dependence, cigarettes, uncomplicated; Z88.8 Allergy status to other drugs, medicaments and biological substances; Z20.828 Contact with and (suspected) exposure to other viral communicable diseases; Z82.49 Family history of ischemic heart disease and other diseases of the circulatory system
CPT/HCPCS: 36415; 85610; 82947; 85730; 71046; 93454; U0002; C1893; C1760; J2250 ×3; J3010; J7040; J1644; J0583